=== PATIENT | female | born 1975 | race Caucasian/White ===

== ENCOUNTER → 2019-03-04 | Outpatient (CLI) | payer BC ==
[2019-03-04 12:06] LABS: EOS # 0.2 (0.04-0.40); EOS % 2.6 % (1.0-5.0); HEMATOCRIT 40.4 % (37.0-47.0); HEMOGLOBIN 13.7 g/dL (12.5-16.0); LYMPH# 2.8 (1.50-4.00); MEAN CELL VOLUME 84 fl (78-100); MEAN CORPUSCULAR HEMOGLOBIN 29 pg (27-31); MEAN CORPUSCULAR HGB CONC 34 g/dL (33-37); MEAN PLATELET VOLUME 9.6 fl (7.4-10.4); MONO # 0.3 (0.20-0.80); NEU # 3.5 (1.40-6.50); PLATELET COUNT 256 K/mm3 (130-400); RED BLOOD COUNT 4.79 M/mm3 (4.10-5.30); RED CELL DISTRIBUTION WIDTH 12.7 % (11.5-14.5); WHITE BLOOD COUNT 6.8 K/mm3 (4.8-10.8)
[2019-03-04 12:15] LABS: POTASSIUM 4.1 mmol/L (3.5-5.1)
[2019-03-04 12:17] LABS: ALBUMIN 4.1 g/dL (3.5-5.0); CALCIUM 9.2 mg/dL (8.3-10.5)
[2019-03-04 12:19] LABS: TOTAL PROTEIN 7.2 g/dL (6.4-8.3)
[2019-03-04 12:20] LABS: TOTAL BILIRUBIN 0.4 mg/dL (0.2-1.2)
[2019-03-04 23:52] LABS: FOLLICLE STIMULATING HORMONE 3.5 mIU/mL (())
[2019-03-05 19:09] LABS: LUTENIZING HORMONE 2.6 mIU/mL (())
[2019-03-11 11:41] LABS: ESTRONE*** AMS
== END ==
LOC: LAB 11:46
PROVIDERS: Physician Assistant
DX: Z13.220 Encounter for screening for lipoid disorders (principal); E11.40 Type 2 diabetes mellitus with diabetic neuropathy, unspecified; L05.91 Pilonidal cyst without abscess; Z76.89 Persons encountering health services in other specified circumstances

== ENCOUNTER → 2019-06-11 | Outpatient (CLI) | payer BC | LOC: LAB 16:35 | DX: E11.40 Type 2 diabetes mellitus with diabetic neuropathy, unspecified (principal); E66.01 Morbid (severe) obesity due to excess calories ==

== ENCOUNTER → 2020-11-10 | Outpatient (CLI) | payer BC ==
[2020-11-10 11:37] LABS: BASO # 0.03 (0.02-0.10); EOS % 2.7 % (1.0-5.0); HEMATOCRIT 41.5 % (37.0-47.0); HEMOGLOBIN 14.6 g/dL (12.5-16.0); LYMPH# 3.11 (1.50-4.00); MEAN CELL VOLUME 83 fl (78-100); MEAN CORPUSCULAR HEMOGLOBIN 29 pg (27-31); MEAN CORPUSCULAR HGB CONC 35 g/dL (33-37); MEAN PLATELET VOLUME 9.5 fl (7.4-10.4); MONO # 0.46 (0.20-0.80); NEU # 3.64 (1.40-6.50); PLATELET COUNT 256 K/mm3 (130-400); RED BLOOD COUNT 5.02 M/mm3 (4.10-5.30); RED CELL DISTRIBUTION WIDTH 11.6 % (11.5-14.5); WHITE BLOOD COUNT 7.5 K/mm3 (4.8-10.8)
[2020-11-10 11:43] LABS: ALBUMIN 4.2 g/dL (3.5-5.0); POTASSIUM 4.5 mmol/L (3.5-5.1)
[2020-11-10 11:44] LABS: CALCIUM 9.2 mg/dL (8.3-10.5)
[2020-11-10 11:45] LABS: TOTAL PROTEIN 7.2 g/dL (6.4-8.3)
[2020-11-10 11:47] LABS: TOTAL BILIRUBIN 0.4 mg/dL (0.2-1.2)
== END ==
LOC: LAB 11:17
PROVIDERS: Physician Assistant
DX: Z00.00 Encounter for general adult medical examination without abnormal findings (principal); Z13.29 Encounter for screening for other suspected endocrine disorder; E78.5 Hyperlipidemia, unspecified; E11.9 Type 2 diabetes mellitus without complications; K90.9 Intestinal malabsorption, unspecified

== ENCOUNTER → 2020-12-01 | Day surgery (SDC) | payer BC | LOC: MSO 08:43 | DX: Z12.11 Encounter for screening for malignant neoplasm of colon (principal); D12.2 Benign neoplasm of ascending colon; E11.9 Type 2 diabetes mellitus without complications; Z79.84 Long term (current) use of oral hypoglycemic drugs | CPT/HCPCS: 00811; J2704; J7120 ==

== ENCOUNTER → 2021-12-13 | Outpatient (CLI) | payer BC ==
[2021-12-13 17:06] LABS: BASO # 0.03 K/mm3 (0.02-0.10); EOS # 0.12 K/mm3 (0.04-0.40); EOS % 1.8 % (1.0-5.0); HEMATOCRIT 42.5 % (37.0-47.0); HEMOGLOBIN 14.8 g/dL (12.5-16.0); LYMPH# 2.38 K/mm3 (1.50-4.00); MEAN CELL VOLUME 84 fl (78-100); MEAN CORPUSCULAR HEMOGLOBIN 29 pg (27-31); MEAN CORPUSCULAR HGB CONC 35 g/dL (33-37); MEAN PLATELET VOLUME 9.7 fl (7.4-10.4); MONO # 0.39 K/mm3 (0.20-0.80); NEU # 3.82 K/mm3 (1.40-6.50); PLATELET COUNT 269 K/mm3 (130-400); RED BLOOD COUNT 5.08 M/mm3 (4.10-5.30); RED CELL DISTRIBUTION WIDTH 12.1 % (11.5-14.5); WHITE BLOOD COUNT 6.8 K/mm3 (4.8-10.8)
[2021-12-13 17:12] LABS: ALBUMIN 4.1 g/dL (3.5-5.0); POTASSIUM 4.4 mmol/L (3.5-5.1)
[2021-12-13 17:13] LABS: CALCIUM 9.9 mg/dL (8.3-10.5)
[2021-12-13 17:14] LABS: TOTAL PROTEIN 7.2 g/dL (6.4-8.3)
[2021-12-13 17:16] LABS: TOTAL BILIRUBIN 0.6 mg/dL (0.2-1.2)
[2021-12-13 17:21] LABS: MAGNESIUM 1.54 mg/dL (1.60-2.60)
== END ==
LOC: LAB 16:52
PROVIDERS: Physician Assistant
DX: Z00.00 Encounter for general adult medical examination without abnormal findings (principal); Z13.29 Encounter for screening for other suspected endocrine disorder; M16.0 Bilateral primary osteoarthritis of hip; K90.9 Intestinal malabsorption, unspecified; G62.9 Polyneuropathy, unspecified; E11.9 Type 2 diabetes mellitus without complications; E78.5 Hyperlipidemia, unspecified

== ENCOUNTER → 2021-12-13 | Outpatient (CLI) | payer BC | LOC: RAD 16:44 | DX: M25.561 Pain in right knee (principal); M25.562 Pain in left knee ==

== ENCOUNTER → 2021-12-18 | Outpatient (CLI) | payer BC | LOC: RAD 15:35 | DX: K43.9 Ventral hernia without obstruction or gangrene (principal); N20.0 Calculus of kidney; K57.30 Diverticulosis of large intestine without perforation or abscess without bleeding; K31.89 Other diseases of stomach and duodenum; Z98.890 Other specified postprocedural states | CPT/HCPCS: Q9967 ==